=== PATIENT | male | born 1960 | race Caucasian/White ===

== ENCOUNTER 2024-03-20 12:26 | Emergency (ER) | payer BC ==
[~2024-03-20] VITALS: Ht 177.8 cm; Wt 77.1 kg
[2024-03-20 12:32] VITALS: BP 118/64; PULSE 64; RESP 17; TEMP 97.8; O2SAT 97
[2024-03-20] MEDS ORDERED: IBUP-2213 PO (13:06)
[2024-03-20] MEDS ORDERED: ACET-8905 PO (13:06)
[2024-03-20] MEDS ORDERED: ALBU0.0912 INH (13:06)
[2024-03-20] MEDS: KETOROLAC 60 MG/2 ML VIAL IM ONE (13:10)
--- NOTE | 2024-03-20 13:15 | NUR ---
pt has been medicated per providers orders.
[2024-03-20 13:30] VITALS: BP 118/64; PULSE 64; RESP 17; TEMP 97.8
--- NOTE | 2024-03-20 13:35 | NUR ---
Patient discharged with v/s stable. Written and verbal after care instructions given and explained. Patient verbalized understanding. Ambulatory with steady gait. All questions addressed prior to discharge. Advised to follow up with PMD.
[2024-03-20 13:36] VITALS: O2SAT 97
--- NOTE | 2024-03-20 13:39 | NUR ---
64 Y/O MALE PT. PRESENT TO THE ED C/O LOWER BACK PAIN. DENIES MECHANICAL INJURY. PLAN OF CARE ONGOING.
[2024-03-20] MEDS ORDERED: HYDR-5071 PO (15:30)
== END 2024-03-20 13:21 | disposition home or self-care (01) ==
LOC: MED 12:26
DX: M54.50 Low back pain, unspecified (principal); E11.9 Type 2 diabetes mellitus without complications; J45.909 Unspecified asthma, uncomplicated; F17.200 Nicotine dependence, unspecified, uncomplicated; Z88.8 Allergy status to other drugs, medicaments and biological substances
CPT/HCPCS: 96372; 99283; J1885